=== PATIENT | female | born 1960 | race Caucasian/White ===

== ENCOUNTER → 2017-03-30 | Outpatient (CLI) | payer BC ==
[2015-04-04 16:31] VITALS: BP 189/98
[~2017-03-30] MED LIST: CALC0.25 PO; LETR2.5T18 PO
[2017-03-30 09:18] LABS: ALBUMIN 3.5 g/dL (3.4-5.0); ALBUMIN/GLOBULIN RATIO 0.9 (1.0-1.7); CALCIUM 8.6 mg/dL (8.5-10.1); CREATININE 0.6 mg/dL (0.6-1.0); GFR 103.4; POTASSIUM 4.3 mmol/L (3.5-5.1); TOTAL BILIRUBIN 0.4 mg/dL (0.2-1.0); TOTAL PROTEIN 7.2 g/dL (6.4-8.2)
[2017-03-30 09:19] LABS: CHOLESTEROL/HDL RATIO 2.5
== END | disposition home or self-care (01) ==
LOC: LAB 08:34
PROVIDERS: ATTEND Internal Medicine Cardiovascular Disease
DX: I20.8 Other forms of angina pectoris (principal)
CPT/HCPCS: 36415; 80053; 80061

== ENCOUNTER → 2018-08-28 | Outpatient (CLI) | payer BC ==
[2015-04-04 16:31] VITALS: BP 189/98
[2018-08-28 11:12] LABS: CALCIUM 9.1 mg/dL (8.5-10.1); CREATININE 0.6 mg/dL (0.6-1.0); GFR 102.7
== END | disposition home or self-care (01) ==
LOC: LAB 10:26
PROVIDERS: ATTEND Internal Medicine Cardiovascular Disease
DX: I10 Essential (primary) hypertension (principal)
CPT/HCPCS: 36415; 80048

== ENCOUNTER 2021-09-22 03:32 | Emergency (ER) | payer BC ==
[~2021-09-22] VITALS: Ht 162.6 cm; Wt 89.5 kg
[~2021-09-22 03:32] MED LIST changes: +FEMARA2.5 MG PO; -LETR2.5T18 PO
[2021-09-22 04:20] LABS: BILIRUBIN,URINE NEGATIVE (NEG); CLARITY,URINE CLEAR; COLOR,URINE YELLOW; NITRITE,URINE NEGATIVE (NEG); PROTEIN,URINE 30 mg/dL (NEG-TRACE); UROBILINOGEN,URINE 0.2 mg/dL (0.2 mg/dL)
[2021-09-22 04:28] LABS: BACTERIA,URINE 0 /HPF (0-FEW)
--- NOTE | 2021-09-22 04:38 | PHYS DOC ---
Past Medical History Past Medical History: Cancer (RT BREAST), Hypertension (TENISHA JALLOH DO) Past Surgical History: No Surgical History Additional Past Surgical Histo: R)masectomy. (TENISHA JALLOH DO) Smoking Status: Never Smoker Alcohol Use: None Drug Use: None (TENISHA JALLOH DO) General Adult EDM: Chief Complaint: FLANK PAIN HPI: HPI: Patient is a 61-year-old presenting for left flank pain. Reports she was diagnosed with a UTI 5 days ago by primary care physician and currently on Macrobid therapy. States she had dysuria at that time with some vague left- sided pain but reports within the past 24 hours her left-sided flank pain is gotten worse. States she tried to sleep but was unable to due to intense stabbing pain that is more focal on left flank and radiates down into the left groin. Patient's urinary symptoms improved but patient does admit that she has issues with urinary frequency and is not at her baseline. She also admits ongoing nausea without any episodes of diarrhea or vomiting. Reports history of hypertension for which she takes amlodipine only, no other known medical issues. Otherwise no other significant changes in baseline health, recent sick contact or travel. Denying any fever, chest pain, shortness of breath, defecation problems, changes in motor or sensory or neuro function (TENISHA JALLOH DO) Review of Systems: Review of Systems: Fourteen body systems of review of systems have been reviewed. See HPI for pertinent positives and negative responses, other shaw all other systems are negative, non-pertinent or non-contributory (TENISHA JALLOH DO) Heart Score: C/O Chest Pain: No HEART Score for Chest Pain: HEART Score for Chest Pain Response (Comments) Value History Slighlty/Non-Suspicious 0 ECG Normal 0 Age >45 - < 65 1 Risk Factors 1 or 2 Risk Factors 1 Troponin < Normal Limit 0 Total 2 Risk Factors: Risk Factors: DM, Current or recent (<one month) smoker, HTN, HLP, family history of CAD, obesity. Risk Scores: Score 0 - 3: 2.5% MACE over next 6 weeks - Discharge Home Score 4 - 6: 20.3% MACE over next 6 weeks - Admit for Clinical Observation Score 7 - 10: 72.7% MACE over next 6 weeks - Early Invasive Strategies (TENISHA JALLOH DO) Allergies: Allergies: Allergies Coded Allergies Type Severity Reaction Last Updated Verified levofloxacin Allergy Intermediate 09/22/21 Yes sulfamethoxazole Allergy Intermediate 09/22/21 Yes trimethoprim Allergy Intermediate 09/22/21 Yes vancomycin Allergy Intermediate 09/22/21 Yes (TENISHA JALLOH DO) Physical Exam: PE: Constitutional: Well developed, well nourished, no acute distress, non-toxic appearance. HENT: Normocephalic, atraumatic, bilateral external ears normal, oropharynx moist, no oral exudates, nose normal. Eyes: PERRLA, EOMI, conjunctiva normal, no discharge. Neck: Normal range of motion, no tenderness, supple, no stridor. Cardiovascular: Heart rate regular, sinus rhythm, no murmurs rubs or gallops Lungs & Thorax: Bilateral breath sounds clear to auscultation Abdomen: Bowel sounds normal, soft, generalized left flank tenderness with palpation and suprapubic tenderness without guarding or rebound, no masses, no pulsatile masses. Nonsurgical abdomen, no peritoneal signs Skin: Warm, dry, no erythema, no rash. Back: No tenderness, left CVA tenderness. Extremities: No tenderness, no cyanosis, no clubbing, ROM intact, no edema. Neurologic: Alert and oriented X 3, grossly normal motor & sensory function, no focal deficits noted. Psychologic: Affect normal, judgement normal, mood normal. (TENISHA JALLOH DO) Current Patient Data: Labs: Laboratory Tests Test 09/22/21 04:14 Urine Collection Type Unknown Urine Color Yellow Urine Clarity Clear Urine pH 6.0 (<5.0-8.0) Urine Specific [place] 1.015 (1.000-1.030) Urine Protein 30 mg/dL (NEG-TRACE) Urine Glucose (UA) Negative mg/dL (NEG) Urine Ketones (Stick) Negative mg/dL (NEG) Urine Blood Small (NEG) Urine Nitrite Negative (NEG) Urine Bilirubin Negative (NEG) Urine Urobilinogen Dipstick 0.2 mg/dL (0.2 mg/dL) Urine Leukocyte Esterase Negative (NEG) Urine RBC 1-2 /HPF (0-2) Urine WBC 1-4 /HPF (0-4) Urine Squamous Epithelial Cells Mod /LPF Urine Bacteria 0 /HPF (0-FEW) Urine Mucus Slight /LPF Vital Signs: Vital Signs Date Time Temp Pulse Resp B/P (MAP) Pulse Ox O2 Delivery O2 Flow Rate FiO2 11/9/21 04:11 97.6 87 16 165/76 (105) 98 Room Air 97.6 (TENISHA JALLOH DO) EKG: EKG: EKG ordered and interpreted by myself at 0435 hrs. as sinus rhythm at 79 bpm, unremarkable intervals, no axis deviation, no obvious ischemic findings, no STEMI (TENISHA JALLOH DO) Radiology/Procedures: Radiology/Procedures: CT ABDOMEN+PELVIS WO Clinical Indication: Reason: LEFT FLANK PAIN / Spl. Instructions: / History: Comparison: None. Technique: Helical CT imaging of the abdomen and pelvis is performed without IV or oral contrast. Findings: Right mastectomy. Lung bases mostly clear. Cardiac size normal. There is cholelithiasis. There is probably normal variant Keen[place] lobe. The liver is homogeneous. The spleen, pancreas, adrenal glands, and abdominal aorta are normal. The right kidney is normal. There is moderate left hydroureteronephrosis and moderate left perinephric stranding secondary to a 8 x 6 mm calculus of the distal left ureter in the pelvis. The calculus is several centimeters proximal to the ureterovesicular junction, image 177. No left renal calculus is identified. Stomach is unremarkable. There is no dilated small bowel. The appendix is normal. Colon wall thickening is identified. No abdominal adenopathy. Urinary bladder is mostly compressed. Anteverted uterus. No pelvic free fluid. No acute bone abnormality. IMPRESSION: 1. Moderate left obstructive uropathy secondary to a 8 x 6 mm distal ureteral calculus. 2. Cholelithiasis. Electronically signed by: Dangelo Madden MD (09/22/2021 5:15 AM) [facility] (TENISHA JALLOH DO) Course & Med Decision Making: Course & Med Decision Making Airway patent, breathing unlabored, IV access and vitals obtained concerning for slight hypertension only Comprehensive history, physical exam and ER work-up concerning for 8 x 6 mm left-sided kidney stone with intractable nausea. Patient symptoms started 5 to 6 days prior and diagnosed with a UTI at primary care office. I reviewed entirety of ER findings with patient. No emergent findings at present but I worry given size of 8 x 6 mm left-sided stone in fact that she has ongoing nausea and requiring IV pain medication given current pathology I contacted [facility] and discussed need for hospital transfer for admission for continued inpatient medical management and consideration for urology consultation. Pending return call at my end of shift Comprehensive signout given to Dr. Spencer who is understandable of patient's current condition and need for hospital transfer for urology services. Please defer to his documentation regarding future care of patient in ER setting pending hospital transfer for admission (TENISHA JALLOH DO) Course & Med Decision Making The patient continues to rest comfortably without any respiratory distress. The patient's pain does appear to be controlled well with IV pain medication. Nonetheless the patient requires transfer and that urology is not immediately available at this facility. The patient has been accepted at [facility] by Dr. Bagley for medical management and possible intervention. The patient understands and has agreed to this. She will be transported non- emergently via EMS. She is nontoxic-appearing and stable for transport (STEPH SPENCER DO) Dragon Disclaimer: Chau Disclaimer: This electronic medical record was generated, in whole or in part, using a voice recognition dictation system. (TENISHA JALLOH DO) Departure Departure Impression: Primary Impression: Left renal stone Disposition: 02 SHORT TERM HOSPITAL Condition: STABLE Referrals: BAY DAVIS MD (PCP) TENISHA JALLOH DO Sep 22, 2021 04:38 STEPH SPENCER DO Sep 22, 2021 12:40
[2021-09-22] MEDS ORDERED: fentaNYL PF VIAL 100 MCG/2 ML VIAL IVP ONE (05:00)
--- NOTE | 2021-09-22 05:18 | RAD ---
PQRS Compliance Statement: One or more of the following individualized dose reduction techniques were utilized for this examinat ion: 1. Automated exposure control 2. Adjustment of the mA and/or kV according to patient size 3. Use of iterative reconstruction technique CT ABDOMEN+PELVIS WO Clinical Indication: Reason: LEFT FLANK PAIN / Spl. Instructions: / History: Comparison: None. Technique: Helical CT imaging of the abdomen and pelvis is performed without IV or oral contrast. Findings: Right mastectomy. Lung bases mostly clear. Cardiac size normal. There is cholelithiasis. There is probably normal variant Keenan lobe. The liver is homogeneous. The spleen, pancreas, adrenal glands, and abdominal aorta are normal. The right kidney is normal. There is moderate left hydroureteronephrosis and moderate left perinephri c stranding secondary to a 8 x 6 mm calculus of the distal left ureter in the pelvis. The calculus is several centimeters proximal to the ureterovesicular junction, image 177. No left renal calculus is identified. Stomach is unremarkable. There is no dilated small bowel. The appendix is normal. Colon wall thickeni ng is identified. No abdominal adenopathy. Urinary bladder is mostly compressed. Anteverted uterus. No pelvic free fluid. No acute bone abnormality. IMPRESSION: 1. Moderate left obstructive uropathy secondary to a 8 x 6 mm distal ureteral calculus. 2. Cholelithiasis. Electronically signed by: Dangelo Madden MD (09/22/2021 5:15 AM) [facility]
[2021-09-22 05:20] LABS: BASO % 0 % (0-3); EOS # 0.1 x10^3/uL (0.0-0.7); EOS % 0 % (0-3); HEMATOCRIT 39.5 % (36.0-47.0); HEMOGLOBIN 12.8 g/dL (12.0-15.5); LYMPH # 3.8 x10^3/uL (1.0-4.8); LYMPH % 24 % (24-48); MEAN CORPUSCULAR HEMOGLOBIN 25 pg (25-35); MEAN CORPUSCULAR HGB CONC 32 g/dL (31-37); MEAN CORPUSCULAR VOLUME 78 fL (79-100); MONO # 0.6 x10^3/uL (0.0-1.1); MONO % 4 % (0-9); NEUT # 11.1 x10^3/uL (1.8-7.7); NEUT % 71 % (31-73); PLATELET COUNT 205 x10^3/uL (140-400); RED BLOOD COUNT 5.07 x10^6/uL (3.50-5.40); RED CELL DISTRIBUTION WIDTH 15.1 % (11.5-14.5); WHITE BLOOD COUNT 15.6 x10^3/uL (4.0-11.0)
--- NOTE | 2021-09-22 05:21 | EKG ---
[facility] [address] [place] [address] Test Date: 2021-09-22 Test Time: 04:29:02 Pat Name: BRENT DANIELSON Department: Room: Gender: F Learning And Development Coordinator: : 1960 Requested By: TENISHA JALLOH Order Number: [id number] Reading MD: Mac Trent MD Measurements Intervals [place] Rate: 79 P: 38 OK: 128 QRS: 45 QRSD: 76 T: 64 QT: 372 QTc: 428 Interpretive Statements SINUS RHYTHM Electronically Signed On 09-22-2021 8:59:27 PICKER TENDER by Mac Trent MD
[2021-09-22 05:26] LABS: CALCIUM 8.7 mg/dL (8.5-10.1); GFR 56.4; POTASSIUM 4.4 mmol/L (3.5-5.1)
[2021-09-22] MEDS ORDERED: ONDANSETRON PF 4 MG/2 ML VIAL. IVP ONE (05:30)
[2021-09-22 05:32] LABS: ALBUMIN 3.9 g/dL (3.4-5.0); ALBUMIN/GLOBULIN RATIO 1.1 (1.0-1.7); TOTAL BILIRUBIN 0.5 mg/dL (0.2-1.0); TOTAL PROTEIN 7.6 g/dL (6.4-8.2)
[2021-09-22] MEDS ORDERED: TAMSULOSIN 0.4 MG CAP.ER.24H. PO ONE (06:00)
[2021-09-22] MEDS ORDERED: cefTRIAXone IV Push 1 GM VIAL. IVP ONE (06:00)
[2021-09-22] MEDS ORDERED: IV NORMAL SALINE 1000ML BAG 1,000 ML IV ONE (06:00)
[2021-09-22] MEDS ORDERED: KETOROLAC 15 MG/ML VIAL. IVP ONE (06:00)
[2021-09-22] MEDS ORDERED: MORPHINE SULFATE 4 MG/ML INJ. IVP ONE (10:00)
[2021-09-22 12:15] VITALS: BP 145/73
== END 2021-09-22 14:48 | disposition short-term general hospital (02) ==
LOC: ER 03:32
DX: N20.0 Calculus of kidney (principal); Z20.822 Contact with and (suspected) exposure to COVID-19; Z88.1 Allergy status to other antibiotic agents; Z88.2 Allergy status to sulfonamides
CPT/HCPCS: 36415; 74176; 80053; 81001; 83605; 84484; 85025; 87040; 87426; 93005; 96361; 96374; 96375; 99285; J0696; J1885; J2270; J2405; J3010; J7030